=== PATIENT | female | born 1995 | race African-American/Black ===

== ENCOUNTER 2017-01-17 11:14 | Emergency (ER) | payer OTHER ==
[2017-01-17 11:31] VITALS: BP 140/85
[2017-01-17] MEDS ORDERED: Ibuprofen TAB* 400 MG PO ONE (12:27)
--- NOTE | 2017-01-17 12:29 | ED ---
Throat Pain/Nasal Congestion - History of Current Complaint Chief Complaint: EDThroatPain Time Seen by Provider: 01/17/17 11:31 - Allergies/Home Medications Allergies/Adverse Reactions: Allergies Allergy/AdvReac Type Severity Reaction Status Date / Time No Known Allergies Allergy Verified 06/15/15 03:40 PMH/Surg Hx/FS Hx/Imm Hx Infectious Disease History: Denies: Traveled Outside the [place] in Last 30 Days - Social History Alcohol Use: None Substance Use Type: Reports: None Substance Use Comment - Amount & Last Used: DAILY Smoking Status (MU): Never Smoked Tobacco Physical Exam Vital Signs On Initial Exam: Initial Vitals Temp Pulse Resp BP Pulse Ox 98.1 F 78 18 140/85 98 01/17/17 11:26 01/17/17 11:26 01/17/17 11:26 01/17/17 11:26 01/17/17 11:26 Diagnostics - Vital Signs Vital Signs Temp Pulse Resp BP Pulse Ox 01/17/17 11:26 98.1 F 78 18 140/85 98 - Laboratory Lab Statement: Any lab studies that have been ordered have been reviewed, and results considered in the medical decision making process. EENT Course/Dx - Diagnoses Provider Diagnoses: UTI (urinary tract infection), Laryngitis, Rhinosinusitis Discharge - Discharge Plan Condition: Stable Disposition: HOME Prescriptions: Sulfamethox/Trimethoprim DS* [Bactrim DS 800/160 TAB*] 1 tab PO BID #6 tab Patient Education Materials: Urinary Tract Infection in Women (ED), Laryngitis (ED) Forms: *Work Release Referrals: Pauline Vasques DO [Primary Care Provider] - Additional Instructions: Rest your voice, drink plenty of fluids, continue Ibuprofen/Tylenol for pain and discomfort. Don't share drinks, wash hands frequently and rest. Try swishing with salt water. Take prescribed antibiotic as directed for your UTI. If symptoms worsen or do not improve please seek medical attention promptly. Follow up with PCP.
[2017-01-17 13:40] LABS: Urine Bacteria Absent (Absent); Urine Bilirubin Negative (Negative); Urine Glucose Negative (Negative); Urine Nitrite Negative (Negative)
== END 2017-01-17 14:14 | disposition home or self-care (01) ==
LOC: ED 11:14
DX: J04.0 Acute laryngitis (principal); N39.0 Urinary tract infection, site not specified; J32.9 Chronic sinusitis, unspecified
CPT/HCPCS: 81003; 81015; 87086; 87651; A9270-GY

== ENCOUNTER 2017-02-23 12:39 | Emergency (ER) | payer OTHER ==
--- NOTE | 2017-02-23 14:43 | UC ---
Knee Pain HPI - HPI Summary HPI Summary: began with right knee pain--no known injury--today it is much more painful and swollen, hurts to bend knee - History of Current Complaint Chief Complaint: UCLowerExtremity Stated Complaint: KNEE PAIN Time Seen by Provider: 02/23/17 14:41 Hx Obtained From: Patient Hx Last Menstrual Period: 01/23/17 ?: No Onset/Duration: Sudden Onset, Lasting Days - 3, Worse Since - this morning Severity Initially: Moderate Severity Currently: Moderate Pain Intensity: 8 Pain Scale Used: 0-10 Numeric Character: Aching, Throbbing Aggravating Factor(s): Movement, Weight Bearing Alleviating Factor(s): Rest, Position Associated Signs And Symptoms: Positive: Swelling Able to Bear Weight: No - Allergies/Home Medications Allergies/Adverse Reactions: Allergies Allergy/AdvReac Type Severity Reaction Status Date / Time No Known Allergies Allergy Verified 02/23/17 12:55 PMH/Surg Hx/FS Hx/Imm Hx Previously Healthy: Yes - Surgical History Surgery Procedure, Year, and Place: none - Family History Known Family History: Positive: None - Social History Occupation: Employed Full-time Lives: With Family Alcohol Use: Occasionally Substance Use Type: None Substance Use Comment - Amount & Last Used: DAILY Smoking Status (MU): Current Every Day Smoker - Immunization History Most Recent Influenza Vaccination: 2013 Most Recent Tetanus Shot: 2014 Most Recent Pneumonia Vaccination: never Review of Systems Constitutional: Negative Skin: Negative Eyes: Negative ENT: Negative Respiratory: Negative Cardiovascular: Negative Gastrointestinal: Negative Genitourinary: Negative Motor: Decreased ROM - right knee Neurovascular: Negative Musculoskeletal: Arthralgia - right knee Neurological: Negative Psychological: Negative All Other Systems Reviewed And Are Negative: Yes Physical Exam Triage Information Reviewed: Yes Appearance: Well-Appearing, Well-Nourished, Pain Distress - mild Vital Signs: Initial Vital Signs Temp 98.5 F 02/23/17 12:51 Pulse 88 02/23/17 12:51 Resp 16 02/23/17 12:51 BP 126/57 02/23/17 12:51 Pulse Ox 100 02/23/17 12:51 Vital Signs Reviewed: Yes Eye Exam: Normal Eyes: Positive: Conjunctiva Clear ENT Exam: Normal ENT: Positive: Normal ENT inspection, Hearing grossly normal. Negative: Nasal congestion, Nasal drainage, Trismus, Muffled/hoarse voice Dental Exam: Normal Neck exam: Normal Neck: Positive: Supple, Nontender, No Lymphadenopathy Respiratory Exam: Normal Respiratory: Positive: Chest non-tender, Lungs clear, Normal breath sounds, No respiratory distress, No accessory muscle use Cardiovascular Exam: Normal Cardiovascular: Positive: RRR, No Murmur, Pulses Normal, Brisk Capillary Refill Musculoskeletal Exam: Normal Musculoskeletal: Positive: Strength Intact, ROM Intact, No Edema Neurological Exam: Normal Neurological: Positive: Alert, Muscle Tone Normal Psychological Exam: Normal Psychological: Positive: Normal Response To Family Skin Exam: Normal Diagnostics - Radiology No standard instances Xray Interpretation: No Acute Changes Radiology Interpretation Completed By: Radiologist Re-Evaluation - Re-Evaluation First Eval Change: Improved - chente, knee immoblizer and crutches , some decrease in discomfort Knee Pain Course/Dx - Course Course Of Treatment: rice, crutches, ibuprofen, follow with pt and ortho - Differential Dx/Diagnosis Differential Diagnosis/HQI/PQRI: Contusion, Fracture (Closed), Josse-Schlatter Disease, Patellofemoral Syndrome, Sprain, Strain Provider Diagnoses: Right knee pain Discharge - Discharge Plan Condition: Stable Disposition: HOME Prescriptions: Ibuprofen TAB* [Motrin TAB* 600 MG] 600 mg PO Q6H PRN #40 tab PRN Reason: Pain Patient Education Materials: Crutch Instructions (ED), Swollen Knee Joint (ED) , Knee Pain (ED), RICE Therapy (ED) Referrals: [facility] [place] PHYS[facility]IAN REFERRAL [Outside] - 2 Weeks Naty Manley MD [Medical Doctor] - 3 Days
--- NOTE | 2017-02-23 14:47 | UC ---
Knee Pain HPI - HPI Summary HPI Summary: The patient comes in today for: 1. Knee pain: Onset: Palliative/provocative: Quality: Region: Severity: Time: Associated symptoms: * - History of Current Complaint Chief Complaint: UCLowerExtremity Stated Complaint: KNEE PAIN Time Seen by Provider: 02/23/17 14:41 Hx Last Menstrual Period: 01/23/17 - Allergies/Home Medications Allergies/Adverse Reactions: Allergies Allergy/AdvReac Type Severity Reaction Status Date / Time No Known Allergies Allergy Verified 02/23/17 12:55 Home Medications: Home Medications NK [No Home Medications Reported] 02/23/17 [History Confirmed 02/23/17] PMH/Surg Hx/FS Hx/Imm Hx - Surgical History Surgery Procedure, Year, and Place: none - Family History Known Family History: Positive: None - Social History Alcohol Use: Occasionally Substance Use Type: None Substance Use Comment - Amount & Last Used: DAILY Smoking Status (MU): Current Every Day Smoker - Immunization History Most Recent Influenza Vaccination: 2013 Most Recent Tetanus Shot: 2014 Most Recent Pneumonia Vaccination: never Physical Exam Vital Signs: Initial Vital Signs Temp 98.5 F 02/23/17 12:51 Pulse 88 02/23/17 12:51 Resp 16 02/23/17 12:51 BP 126/57 02/23/17 12:51 Pulse Ox 100 02/23/17 12:51
[2017-02-23] MEDS ORDERED: Ibuprofen TAB* 600 MG PO ONE (14:49)
--- NOTE | 2017-02-23 15:15 | RAD ---
HISTORY: Right knee pain and swelling COMPARISONS: None VIEWS: 4, Frontal, lateral, axial, and oblique views of the right knee FINDINGS: BONE DENSITY: Normal. BONES: There is no displaced fracture. JOINTS: There is no arthropathy. There is no suprapatellar joint effusion or lipohemarthrosis. ALIGNMENT: There is no dislocation. SOFT TISSUES: Unremarkable. OTHER FINDINGS: None. IMPRESSION: NO ACUTE OSSEOUS INJURY. IF SYMPTOMS PERSIST, RECOMMEND REPEAT IMAGING.
[2017-02-23 15:42] VITALS: BP 119/69
== END 2017-02-23 15:58 | disposition home or self-care (01) ==
LOC: UCEAST 12:39
DX: Z72.0 Tobacco use (principal); M25.561 Pain in right knee
CPT/HCPCS: 99213; A9270-GY; G0463

== ENCOUNTER 2017-12-03 10:35 | Emergency (ER) | payer OTHER ==
[2017-12-03] MEDS ORDERED: NS 0.9% 1000 ML* 1,000 ML IV ONE (10:43)
[2017-12-03] MEDS ORDERED: Ondansetron INJ* 2 MG/ML VIAL IV ONE ×2 (10:55→12:42)
[2017-12-03] MEDS ORDERED: Morphine INJ* 4 MG/ML 1 ML SYRINGE (NEW SYRINGE VERSION) IV ONE ×2 (10:56→13:26)
--- NOTE | 2017-12-03 11:05 | ED ---
GI/ HPI - HPI Summary HPI Summary: 22-year-old female presents with abdominal pain for the past day. She states this started suprapubic tenderness since radiated up to her entire abdomen. She admits to nausea vomiting diarrhea. She denies a sore throat, cough, chest pain, or shortness of breath. She denies any abnormal vaginal discharge. She is sexually active. She has a Mirena placed. She admits to the pain with urination. She denies any flank pain. She's never had this pain before. She took some Advil without relief. She denies any known fever. She admits to decreased appetite. She denies any previous abdominal surgeries. - History of Current Complaint Chief Complaint: EDAbdPain Time Seen by Provider: 12/03/17 10:40 Stated Complaint: ABD PAIN Hx Last Menstrual Period: 01/23/17 Pain Intensity: 10 - Allergy/Home Medications Allergies/Adverse Reactions: Allergies Allergy/AdvReac Type Severity Reaction Status Date / Time No Known Allergies Allergy Verified 12/03/17 10:37 Home Medications: Home Medications Ibuprofen TAB* [Advil TAB*] 200 - 400 mg PO Q6H PRN 12/03/17 [History Confirmed 12/03/17] PMH/Surg Hx/FS Hx/Imm Hx Endocrine/Hematology History: Denies: Hx Diabetes Cardiovascular History: Denies: Hx Hypertension Respiratory History: Denies: Hx Asthma - Surgical History Surgery Procedure, Year, and Place: none - Immunization History Date of Influenza Vaccine: didn't get this season Infectious Disease History: No Infectious Disease History: Denies: Traveled Outside the [place] in Last 30 Days - Family History Known Family History: Positive: None - Social History Alcohol Use: Occasionally Substance Use Type: Reports: None Substance Use Comment - Amount & Last Used: DAILY Smoking Status (MU): Current Every Day Smoker Review of Systems Negative: Fever Negative: Chest Pain Negative: Shortness Of Breath Positive: Abdominal Pain, Vomiting, Diarrhea, Nausea All Other Systems Reviewed And Are Negative: Yes Physical Exam Triage Information Reviewed: Yes Vital Signs On Initial Exam: Initial Vitals Temp Pulse Resp BP Pulse Ox 96.0 F 137 20 133/64 99 12/03/17 10:37 12/03/17 10:37 12/03/17 10:37 12/03/17 10:37 12/03/17 10:37 Vital Signs Reviewed: Yes Appearance: Positive: Pain Distress Skin: Positive: Warm, Dry Head/Face: Positive: Normal Head/Face Inspection Eyes: Positive: Normal, EOMI, KENNETH, Conjunctiva Clear ENT: Positive: Normal ENT inspection, Pharynx normal, TMs normal Respiratory/Lung Sounds: Positive: Clear to Auscultation, Breath Sounds Present Cardiovascular: Positive: Normal, RRR Abdomen Description: Positive: Soft, Other: - diffuse tenderness greatest suprapubic Bowel Sounds: Positive: Present Pelvic Exam: Positive: external exam normal, speculum exam normal, bimanual exam normal, no cerv. motion tender Musculoskeletal: Positive: Normal Neurological: Positive: Normal Psychiatric: Positive: Normal Diagnostics - Vital Signs Vital Signs Temp Pulse Resp BP Pulse Ox 12/03/17 11:03 16 12/03/17 10:37 96.0 F 137 20 133/64 99 - Laboratory Result Diagrams: 12/03/17 10:55 12/03/17 10:55 Lab Statement: Any lab studies that have been ordered have been reviewed, and results considered in the medical decision making process. - CT abd CT Interpretation: Positive (See Comments) - IMPRESSION: Small amount of free fluid is noted in the cul-de-sac. Segment of terminal ileum just proximal to the ileocecal valve demonstrates mucosal thickening. Additionally in the right mid abdomen there is a segment of small bowel with mucosal thickening and induration of the mesenteric fat adjacent to this segment of bowel. There may also be some mucosal thickening in the left lower quadrant. Findings are consistent with inflammatory bowel disease. No abscess is noted. CT Interpretation Completed By: Radiologist - Ultrasound No standard instances Ultrasound Interpretation: Positive (See Comments) - IMPRESSION: 1. LOW-LYING IUD ALONG THE ENDOCERVICAL CANAL. 2. THERE IS SIMPLE FLUID WITHIN THE CUL-DE- SAC AND ALONG THE ADNEXA. THIS MAY BE PHYSIOLOGIC IN A REPRODUCTIVE AGE FEMALE. 3. NO SONOGRAPHIC FEATURES OF TORSION. PLEASE NOTE THAT PARTIAL OR INTERMITTENT TORSION MAY BE SONOGRAPHICALLY NORMAL. Ultrasound Interpretation Completed By: Radiologist RIC Course/Dx - Course Course Of Treatment: 22-year-old female presents with abdominal pain for the past day. She states this started suprapubic tenderness since radiated up to her entire abdomen. She admits to nausea vomiting diarrhea. She denies a sore throat, cough, chest pain, or shortness of breath. She denies any abnormal vaginal discharge. She is sexually active. She has a Mirena placed. She admits to the pain with urination. She denies any flank pain. She's never had this pain before. She took some Advil without relief. She denies any known fever. She admits to decreased appetite. She denies any previous abdominal surgeries. On exam tenderness greatest suprapubic. labs wbc 22.3. pelvic exam unremarkable. transvaginal u/s normal. CT shows inflammatory bowel. discussed with dr gonaslves will have follow up with primary and GI. dr henriquez says normal appendix. will prescribe pain medication and zofran for nausea. patient understand and agrees with plan,. - Diagnoses Differential Diagnoses - Female: Appendicitis, Gastroenteritis (Viral), Gastroenteritis (Bacterial), Pelvic Inflammatory Disease Provider Diagnoses: Abdominal pain Discharge - Sign-Out/Discharge Documenting (check all that apply): Discharge - Discharge Plan Condition: Good Disposition: HOME Prescriptions: Ondansetron TAB* [Zofran 4 MG Tab*] 4 mg PO Q6H PRN #20 tab PRN Reason: Nausea oxyCODONE/Acetamin 5/325 MG* [Percocet 5/325 TAB*] 1 tab PO Q6H PRN #16 tab MDD 4 PRN Reason: Pain Patient Education Materials: Abdominal Pain (ED) Referrals: [facility] – [place] [facility] REFERR[facility] [Outside] Matt Lennon MD [Medical Doctor] - Additional Instructions: Follow up with GI Establish care with primary Can take Zofran every 6 hours as needed for nausea Drink small amounts of fluid as tolerated When able to eat follow BRAT diet: Bananas, rice, applesauce, toast Take ibuprofen or Tylenol for pain as needed every 6 hours, use narcotic for break through pain every 6 hours Return to ED if develop any new or worsening symptoms - Billing Disposition and Condition Condition: GOOD Disposition: HOME
[2017-12-03 11:07] LABS: Hematocrit 43 % (35-47); Mean Corpuscular HGB Conc 33 g/dl (31-36); Mean Corpuscular Hemoglobin 25 pg (27-31); Mean Corpuscular Volume 76 fL (80-97); Mean Platelet Volume 9 um3 (7.4-10.4); Platelet Count 227 10^3/ul (150-450); Red Blood Count 5.58 10^6/ul (4.0-5.4); Red Cell Distribution Width 14 % (10.5-15); White Blood Count 23.3 10^3/ul (3.5-10.8)
[2017-12-03] MEDS: NS 0.9% 1000 ML* 2,000 ML IV ONE ×2 (11:26→13:14)
[2017-12-03 11:45] LABS: EGFR Non-African American 66.9 (>60)
[2017-12-03 12:01] LABS: ABS Basophils 0.1 10^3/ul (0-0.2); ABS Eosinophils 0 10^3/ul (0-0.6); ABS Lymphocytes 0.3 10^3/ul (1.0-4.8); ABS Monocytes 0.6 10^3/ul (0-0.8); ABS Neutrophils 22.3 10^3/ul (1.5-7.7); ABS Nucleated RBC 0 10^3/ul; Eosinophil % 0 % (0-6); Lymphocyte % 1.4 % (25-47); Nucleated Red Blood Cells % 0
[2017-12-03] MEDS ORDERED: Iohexol 300* (CONTRAST) 10 ML SDV IV ONE (13:22)
--- NOTE | 2017-12-03 13:23 | RAD ---
HISTORY: Pelvic pain, IUD COMPARISONS: None TECHNIQUE: Multiple transverse and longitudinal ultrasound images were obtained of the pelvis using grayscale, color Doppler, and spectral Doppler imaging using the endovaginal transducer. FINDINGS: UTERUS: The uterus measures 8.4 x 4.9 x 5.3 cm. The uterus is normal in shape, size, contour, and echotexture. ENDOMETRIUM: The endometrial stripe is smooth. The endometrium measures 0.5 cm in thickness. An IUD is noted along the endocervical canal. CUL-DE-SAC: There is simple fluid within the cul-de-sac and along the adnexa. This may be physiologic in a reproductive age female. RIGHT OVARY: The right ovary measures 3.3 x 2 x 2.3 cm. Normal arterial and venous waveforms are identifiable within the ovary on spectral Doppler imaging. Multiple follicles are noted. LEFT OVARY: The left ovary measures 4.6 x 1.6 x 2 cm. Normal arterial and venous waveforms are identifiable within the ovary on spectral Doppler imaging. Multiple follicles are noted. BLADDER: The bladder is not well visualized. OTHER: None IMPRESSION: 1. LOW-LYING IUD ALONG THE ENDOCERVICAL CANAL. 2. THERE IS SIMPLE FLUID WITHIN THE CUL-DE-SAC AND ALONG THE ADNEXA. THIS MAY BE PHYSIOLOGIC IN A REPRODUCTIVE AGE FEMALE. 3. NO SONOGRAPHIC FEATURES OF TORSION. PLEASE NOTE THAT PARTIAL OR INTERMITTENT TORSION MAY BE SONOGRAPHICALLY NORMAL.
[2017-12-03 14:20] VITALS: BP 138/91
--- NOTE | 2017-12-03 14:35 | RAD ---
Indication: Lower abdominal pain. Contrast: Administered 133.0 ml of OMNIPAQUE 300 mg/ml CT of the abdomen and pelvis was performed after oral and IV contrast administration. Coronal and sagittal reconstructed images were obtained. The lung bases demonstrate no pleural fluid, nodules or masses. Heart is of normal size without evidence of pericardial effusion. The liver is normal in size. No focal lesions or intrahepatic ductal dilatation is noted. The gallbladder demonstrates no calcified gallstones. No pericholecystic fluid or wall thickening is identified. Pancreas images no mass or pancreatic duct dilatation. Spleen is normal in size. No adrenal lesions are noted. The kidneys demonstrate symmetric nephrograms without focal lesions. No retroperitoneal lymphadenopathy is noted. CT of the pelvis demonstrates small amount of free fluid in the cul-de-sac. The urinary bladder is distended. Focal wall thickening is noted in the terminal ileum just proximal to the ileocecal valve. There may be some mild mucosal thickening of the cecum. Additionally in the right mid abdomen there is a segment of mucosal thickening within the small bowel. Adjacent mesenteric fat appears to be infiltrated and edematous. Additional areas of questionable wall thickening is noted in the left abdomen small bowel. Findings are suggestive of inflammatory bowel disease. No adnexal masses are noted. The bony structures are grossly unremarkable. IMPRESSION: Small amount of free fluid is noted in the cul-de-sac. Segment of terminal ileum just proximal to the ileocecal valve demonstrates mucosal thickening. Additionally in the right mid abdomen there is a segment of small bowel with mucosal thickening and induration of the mesenteric fat adjacent to this segment of bowel. There may also be some mucosal thickening in the left lower quadrant. Findings are consistent with inflammatory bowel disease. No abscess is noted.
[2017-12-03 15:00] LABS: Urine Appearance Clear; Urine Blood 2+ (Negative); Urine Color Yellow; Urine Ketones Negative (Negative); Urine Protein Negative (Negative); Urine Specific Gravity 1.005 (1.010-1.030); Urine Urobilinogen Negative (Negative)
--- NOTE | 2017-12-04 21:51 | ED ---
Progress - Progress Note Progress Note: Patient's vaginal cultures reveal positive chlamydia, positive gonorrhea and positive Gardnerella. She was experiencing abdominal pain and had an elevated white blood cell count the day she came in for evaluation. No antibiotics were administered as she was suspected to have inflammation of her bowels. Spoke with her tonight and she does admit she was sexually active 2 weeks ago and continues to feel poorly and states discharge. Discussed her conditions, importance of treatment of both herself as well as partner, retesting prior to engaging in sexual activity, and importance of prevention along with methods of prevention. And she agrees to come into the ED for treatment tonight. Course/Dx - Course Course Of Treatment: 22-year-old female presents with abdominal pain for the past day. She states this started suprapubic tenderness since radiated up to her entire abdomen. She admits to nausea vomiting diarrhea. She denies a sore throat, cough, chest pain, or shortness of breath. She denies any abnormal vaginal discharge. She is sexually active. She has a Mirena placed. She admits to the pain with urination. She denies any flank pain. She's never had this pain before. She took some Advil without relief. She denies any known fever. She admits to decreased appetite. She denies any previous abdominal surgeries. On exam tenderness greatest suprapubic. labs wbc 22.3. pelvic exam unremarkable. transvaginal u/s normal. CT shows inflammatory bowel. discussed with dr gonsalves will have follow up with primary and GI. dr henriquez says normal appendix. will prescribe pain medication and zofran for nausea. patient understand and agrees with plan,. - Diagnoses Provider Diagnoses: Abdominal pain Discharge - Sign-Out/Discharge Documenting (check all that apply): Post-Discharge Follow Up - Discharge Plan Condition: Good Disposition: HOME Prescriptions: Ondansetron TAB* [Zofran 4 MG Tab*] 4 mg PO Q6H PRN #20 tab PRN Reason: Nausea oxyCODONE/Acetamin 5/325 MG* [Percocet 5/325 TAB*] 1 tab PO Q6H PRN #16 tab MDD 4 PRN Reason: Pain Patient Education Materials: Abdominal Pain (ED) Ref[place]: [facility] [place]] Matt Lennon MD [Medical Doctor] - Additional Instructions: Follow up with GI Establish care with primary Can take Zofran every 6 hours as needed for nausea Drink small amounts of fluid as tolerated When able to eat follow BRAT diet: Bananas, rice, applesauce, toast Take ibuprofen or Tylenol for pain as needed every 6 hours, use narcotic for break through pain every 6 hours Return to ED if develop any new or worsening symptoms - Billing Disposition and Condition Condition: GOOD Disposition: HOME
--- NOTE | 2017-12-05 12:00 | ED ---
Progress - Progress Note Progress Note: Patient's vaginal cultures reveal positive chlamydia, positive gonorrhea and positive Gardnerella. She was experiencing abdominal pain and had an elevated white blood cell count the day she came in for evaluation. No antibiotics were administered as she was suspected to have inflammation of her bowels. Spoke with her tonight and she does admit she was sexually active 2 weeks ago and continues to feel poorly and states discharge. Discussed her conditions, importance of treatment of both herself as well as partner, retesting prior to engaging in sexual activity, and importance of prevention along with methods of prevention. And she agrees to come into the ED for treatment tonight. Course/Dx - Course Course Of Treatment: 22-year-old female presents with abdominal pain for the past day. She states this started suprapubic tenderness since radiated up to her entire abdomen. She admits to nausea vomiting diarrhea. She denies a sore throat, cough, chest pain, or shortness of breath. She denies any abnormal vaginal discharge. She is sexually active. She has a Mirena placed. She admits to the pain with urination. She denies any flank pain. She's never had this pain before. She took some Advil without relief. She denies any known fever. She admits to decreased appetite. She denies any previous abdominal surgeries. On exam tenderness greatest suprapubic. labs wbc 22.3. pelvic exam unremarkable. transvaginal u/s normal. CT shows inflammatory bowel. discussed with dr gonsalves will have follow up with primary and GI. dr henriquez says normal appendix. will prescribe pain medication and zofran for nausea. patient understand and agrees with plan,. - Diagnoses Provider Diagnoses: Abdominal pain Discharge - Discharge Plan Condition: Good Disposition: HOME Prescriptions: Ondansetron TAB* [Zofran 4 MG Tab*] 4 mg PO Q6H PRN #20 tab PRN Reason: Nausea oxyCODONE/Acetamin 5/325 MG* [Percocet 5/325 TAB*] 1 tab PO Q6H PRN #16 tab MDD 4 PRN Reason: Pain Patient Education Materials: Abdominal Pain (ED) Referrals: [facility] [place] [facility] [Outside] Matt Lennon MD [Medical Doctor] - Additional Instructions: Follow up with GI Establish care with primary Can take Zofran every 6 hours as needed for nausea Drink small amounts of fluid as tolerated When able to eat follow BRAT diet: Bananas, rice, applesauce, toast Take ibuprofen or Tylenol for pain as needed every 6 hours, use narcotic for break through pain every 6 hours Return to ED if develop any new or worsening symptoms - Billing Disposition and Condition Condition: GOOD Disposition: HOME
== END 2017-12-03 15:22 | disposition home or self-care (01) ==
LOC: ED 10:35
DX: R10.84 Generalized abdominal pain (principal); R11.2 Nausea with vomiting, unspecified; R19.7 Diarrhea, unspecified; R30.0 Dysuria; Z32.02 Encounter for pregnancy test, result negative; Z97.5 Presence of (intrauterine) contraceptive device; F17.210 Nicotine dependence, cigarettes, uncomplicated
CPT/HCPCS: 36415; 74177; 76830; 80053; 81003; 81015; 83690; 84702; 85025; 86141; 87086; 87480; 87491; 87510; 87591; 87661; 96361; 96374; 96375; 96376; 99283; J2270; J2405; Q9967

== ENCOUNTER 2017-12-04 22:32 | Emergency (ER) | payer OTHER ==
[2017-12-04] MEDS ORDERED: Azithromycin TAB* 250 MG PO ONE (22:52)
[2017-12-04] MEDS ORDERED: cefTRIAXone VIAL(*) 250 MG VIAL IM ONE (22:52)
[2017-12-04] MEDS ORDERED: metroNIDAZOLE TAB* 250 MG PO ONE (22:52)
[2017-12-04] MEDS ORDERED: Lidocaine 2% PF * 5 ML VIAL ONE (22:58)
--- NOTE | 2017-12-04 22:58 | ED ---
GI/ HPI - HPI Summary HPI Summary: Patient here regarding a culture call back. She was seen here few days ago and vaginal cultures reveal gonorrhea, chlamydia and bacterial vaginosis. Reports she is monogomous with 1 partner her entire sexually active career. Partner is father of her child. She is here for antibiotic treatment, counseling and education and she is still not feeling well from her previous visit (has not had nausea or vomiting today, denies fever but still has some ab discomfort and diarrhea). Exam at previous visit revealed inflammation of her intestines and she has f/u w/ GI tomorrow. Her heart rate is elevated she admits this is because she's anxious - she confronted partner and is upset with him - he is here in waiting room. Told pt he did not engage in intercourse with other people but rather the infection was from his uncircumcised genitals. - History of Current Complaint Chief Complaint: EDAbdPain Time Seen by Provider: 12/04/17 22:51 Stated Complaint: GENERAL ILLNESS Hx Obtained From: Patient, Family/Telephone Answering Service Operator - sister Hx Last Menstrual Period: 01/23/17 Pain Intensity: 6 - Allergy/Home Medications Allergies/Adverse Reactions: Allergies Allergy/AdvReac Type Severity Reaction Status Date / Time No Known Allergies Allergy Verified 12/04/17 22:40 PMH/Surg Hx/FS Hx/Imm Hx Previously Healthy: Yes Endocrine/Hematology History: Denies: Hx Diabetes Cardiovascular History: Denies: Hx Hypertension Respiratory History: Denies: Hx Asthma GI History: Reports: Other GI Disorders - possible intestinal inflammatory disease? History: Reports: Other Problems/Disorders - has IUD in place - no h/o STD Denies: Hx Kidney Infection, Hx Kidney Stones - Surgical History Surgery Procedure, Year, and Place: none - Immunization History Date of Influenza Vaccine: didn't get this season Infectious Disease History: No Infectious Disease History: Denies: Traveled Outside the [place] in Last 30 Days - Family History Known Family History: Positive: None - Social History Alcohol Use: Occasionally Substance Use Type: Reports: None Substance Use Comment - Amount & Last Used: DAILY Smoking Status (MU): Current Every Day Smoker Review of Systems Constitutional: Negative Negative: Fever, Chills, Fatigue Cardiovascular: Negative Negative: Chest Pain Respiratory: Negative Negative: Shortness Of Breath Positive: Abdominal Pain - discomfort - intermittent, Diarrhea. Negative: Vomiting, Nausea Positive: see HPI Musculoskeletal: Negative Skin: Negative Neurological: Negative Negative: Headache Positive: Anxious All Other Systems Reviewed And Are Negative: Yes Physical Exam Triage Information Reviewed: Yes Vital Signs On Initial Exam: Initial Vitals Temp Pulse Resp BP Pulse Ox 97.6 F 124 20 142/79 100 12/04/17 22:35 12/04/17 22:35 12/04/17 22:35 12/04/17 22:35 12/04/17 22:35 Appearance: Positive: Well-Appearing - tearful during conversation but overall well, No Pain Distress, Well-Nourished Skin: Positive: Warm, Skin Color Reflects Adequate Perfusion, Dry Head/Face: Positive: Normal Head/Face Inspection Eyes: Positive: Normal, EOMI, Conjunctiva Clear ENT: Positive: Normal ENT inspection, Hearing grossly normal, Pharynx normal - mucosa moist Respiratory/Lung Sounds: Positive: Breath Sounds Present Cardiovascular: Positive: Pulses are Symmetrical in both Upper and Lower Extremities, Tachycardia - HR reduced from 120's to 108 upon chest auscultation Abdomen Description: Positive: Nontender, Soft Bowel Sounds: Positive: Present Musculoskeletal: Positive: Normal, Strength/ROM Intact Neurological: Positive: Normal, Sensory/Motor Intact, Alert, Oriented to Person Place, Time, CN Intact II-III Psychiatric: Positive: Normal - tearful at times but consolable and recovers well Diagnostics - Vital Signs Vital Signs Temp Pulse Resp BP Pulse Ox 12/04/17 22:35 97.6 F 124 20 142/79 100 - Laboratory Lab Statement: Any lab studies that have been ordered have been reviewed, and results considered in the medical decision making process. GIGU Course/Dx - Course Course Of Treatment: Discussed with pt here re: contraction, tx and f/u care as well as importance of partner tx and prevention. - Diagnoses Provider Diagnoses: Gonorrhea, Chlamydia, Bacterial vaginosis Discharge - Sign-Out/Discharge Documenting (check all that apply): Discharge - Discharge Plan Condition: Stable Disposition: HOME Prescriptions: metroNIDAZOLE [Flagyl 500 MG TAB] 500 mg PO BID #28 tab Patient Education Materials: Bacterial Vaginosis (ED), Chlamydia (ED), Safe Sex (ED), Gonorrhea (ED) Referrals: No Primary Care Phys,[facility] [Primary Care Provider] - [facility] [Outside] Additional Instructions: You were treated here today for your gonorrhea and chlamydia. These infections need follow-up including retesting and retreatment if tests are still positive. This may be done through [facility]. Call tomorrow to schedule follow -up appointment. You were also diagnosed with bacterial vaginosis. Your antibiotic treatment was started tonight however the remaining medication is at her pharmacy. Please pick this up first thing tomorrow to complete the course. Is encouraged that you abstain from sexual intercourse until all infections have cleared based on retesting. It is also recommended that any partner(s) with which you engaged in sexual activity are also treated and retested. If you need assistance notifying them, he may utilize anonymous services through [facility]. Inquire during phone call tomorrow. *If in the meantime you develop fevers, chills, vomiting, worsening abdominal or pelvic pain, back pain, return to the emergency department - Billing Disposition and Condition Condition: STABLE Disposition: HOME
[2017-12-05 00:40] VITALS: BP 142/92
== END 2017-12-04 23:50 | disposition home or self-care (01) ==
LOC: ED 22:32
DX: A54.9 Gonococcal infection, unspecified (principal); A74.9 Chlamydial infection, unspecified; N76.0 Acute vaginitis; Z87.891 Personal history of nicotine dependence; R10.9 Unspecified abdominal pain; F41.9 Anxiety disorder, unspecified
CPT/HCPCS: 96372; 99282; A9270-GY; J0696